=== PATIENT | male | born 1990 | race Caucasian/White ===

== ENCOUNTER 2016-10-01 19:43 | Emergency (ER) | payer BC ==
--- NOTE | ~2016-10-01 | ER ---
PATIENT'S NAME: BALDO BENÍTEZ [facility] AGE: 25 Y [address] ROOM: [place] [id number] LOCATION: [facility] ADMIT DATE: 10/01/2016 ER/Outpatient Report DISCHARGE DATE: 10/01/2016 FAMILY PHYSICIAN: Gustavo Moon MD ATTENDING PHYSICIAN: Gustavo Law Time of Arrival: 1943 hours. Time of Evaluation: 1950 hours. CHIEF COMPLAINT: Thumb laceration. HISTORY OF PRESENT ILLNESS: The patient is a 25-year-old male, who presents to the emergency department today with a chief complaint of thumb laceration. He was using a vegetable slicer about 30 minutes prior to arrival, and he cut his left thumb. It is sharp pain. It is worse with touch and movement. He did try superglue without any success. Denies any fevers or chills. No other injury. PAST MEDICAL HISTORY: Hypertension. PAST SURGICAL HISTORY: None. SOCIAL HISTORY: The patient denies any tobacco use. Reports occasional alcohol use. Denies any illicit drug use. ALLERGIES: NO KNOWN DRUG ALLERGIES. MEDICATIONS: None. PRIMARY CARE DOCTOR: Dr. Moon. REVIEW OF SYSTEMS: All systems are reviewed by myself and are negative with the exception of those discussed in the HPI and past medical history. PHYSICAL EXAMINATION: VITAL SIGNS: Weight 167.9 kg, blood pressure 176/94, pulse 90, respiratory rate 18, temperature 98.4, oxygen saturation 96% on room air. PATIENT'S NAME: BALDO BENÍTEZ AGE: 25 Y [address] ROOM: [place] [address] LOCATION: [facility] ADMIT DATE: 10/01/2016 ER/Outpatient Report DISCHARGE DATE: 10/01/2016 FAMILY PHYSICIAN: Gustavo Moon MD ATTENDING PHYSICIAN: Gustavo Law GENERAL: The patient is a 25-year-old male, who appears stated age, in no acute distress at this time. HEENT: Head: Normocephalic, atraumatic. Pupils are equal, round, and reactive to light and accommodation. Extraocular motions are intact. Nares are patent bilaterally. NECK: Supple. There is no nuchal rigidity. CARDIOVASCULAR: Regular rate and rhythm. LUNGS: Clear to auscultation bilaterally. ABDOMEN: Soft, nontender, and nondistended. No rebound, rigidity, or guarding. MUSCULOSKELETAL: The patient has full range of motion. SKIN: The patient has a 1.5 cm laceration to left thumb, non-gaping. LABORATORY DATA AND X-RAYS: None. IMPRESSION: 1. A 1.5 cm laceration of left thumb with tissue adhesive repair. 2. Initial visit. EMERGENCY DEPARTMENT COURSE: The patient was brought back to the examination room. Seen and evaluated by myself. The wound is copiously irrigated with soap and water. Pressure is held. Bleeding has stopped. Tissue adhesive Dermabond is utilized to close the wound. There is good cosmesis. Good hemostasis. I have discussed wound care with the patient. I have discussed return to care instructions including worsening symptoms or any other concerns to return to the emergency department as soon as possible. The patient is agreeable without further questions at this time. DISPOSITION: The patient discharged home in good condition. DO DYLON CHAMBERLAIN/modl /[id number] d: 10/02/16 0143 t: 10/03/16 0553, OUTPATIENT REPORT
== END 2016-10-01 20:07 | disposition disaster alternative care site (69) ==
LOC: GACC 19:43
PROC: 0HQGXZZ Repair Left Hand Skin, External Approach (ICD-10-PCS; principal; 2016-10-01)
DX: S61.012A Laceration without foreign body of left thumb without damage to nail, initial encounter (principal); I10 Essential (primary) hypertension; W26.8XXA Contact with other sharp object(s), not elsewhere classified, initial encounter